=== PATIENT | male | born 1990 | race Caucasian/White ===

== ENCOUNTER 2017-10-16 21:09 | Emergency (ER) | payer OTHER ==
[2017-10-16] MEDS ORDERED: ONDANSETRON DISINTEGRATING 4 MG TAB PO ONE (21:50)
[2017-10-16] MEDS ORDERED: chlordiazePOXIDE 25 MG CAP PO ONE (21:50)
--- NOTE | 2017-10-16 22:07 | EDPHY ---
H & P Stated Complaint: n/v, dehydrated, "alc withdrawal" Time Seen by Provider: 10/16/17 21:47 HPI/ROS: CHIEF COMPLAINT: Nausea, vomiting, mild alcohol withdrawal HISTORY OF PRESENT ILLNESS: The patient presents the ED with nausea, vomiting and mild alcohol withdrawal. The patient reportedly relapsed approximately 5 days ago. The patient has been sober for the past 3 days and has developed symptoms of nausea and vomiting. The patient denies any suicidal or homicidal ideation. He denies any medical complaints of fever, cough or congestion. REVIEW OF SYSTEMS: A comprehensive 10 point review of systems is otherwise negative aside from elements mentioned in the history of present illness. Source: Patient Exam Limitations: No limitations - Personal History Current Tetanus Diphtheria and Acellular Pertussis (TDAP): Yes Tetanus Vaccine Date: <10yrs - Medical/Surgical History Hx Asthma: No Hx Chronic Respiratory Disease: No Hx Diabetes: No Hx Cardiac Disease: No Hx Renal Disease: No Hx Cirrhosis: No Hx Alcoholism: Yes Hx HIV/AIDS: No Hx Splenectomy or Spleen Trauma: No Other PMH: etoh abuse; fatty liver - Social History Smoking Status: Current some day smoker - Physical Exam Exam: General Appearance: Alert, no distress Eyes: Pupils equal and round no pallor or injection ENT, Mouth: Mucous membranes moist Respiratory: There are no retractions, lungs are clear to auscultation Cardiovascular: Regular rate and rhythm Gastrointestinal: Abdomen is soft and nontender, no masses, bowel sounds normal Neurological: A&O, normal motor function, normal sensory exam, normal cranial nerves Skin: Warm and dry, no rashes Musculoskeletal: Neck is supple nontender Extremities: symmetrical, full range of motion Constitutional: Initial Vital Signs Temperature (C) 37.0 C 10/16/17 21:21 Heart Rate 68 10/16/17 21:21 Respiratory Rate 20 10/16/17 21:21 Blood Pressure 125/76 H 10/16/17 21:21 O2 Sat (%) 97 10/16/17 21:21 O2 Delivery Mode Room Air Allergies/Adverse Reactions: cefaclor [From Ceclor] Allergy (Verified 10/16/17 21:23) Home Medications: Medication Instructions Recorded Omeprazole [Prilosec] 40 mg PO DAILY #30 capsule. 10/22/15 Ondansetron Odt [Zofran Odt 4 mg 4 mg PO Q4 PRN #20 tab 11/25/15 (RX)] Zofran 11/25/15 traZODone 10/16/17 Medical Decision Making ED Course/Re-evaluation: The patient was given a Zofran ODT for vomiting. The patient has only mild symptoms of alcohol withdrawal. The patient was given oral Librium. The patient will be discharged from the emergency department with a Zofran prepack and Librium prepack. The patient is advised to follow up with [facility] for any ongoing symptoms of alcohol withdrawal. The patient should return to the ED for markedly worsening symptoms, vomiting, pain or other concerns. Differential Diagnosis: Differential diagnosis considered includes alcohol withdrawal, alcohol withdrawal seizure, dehydration, delirium tremens - Data Points Medications Given: Discontinued Medications Chlordiazepoxide HCl (Librium) 25 mg PO EDNOW ONE Stop: 10/16/17 21:51 Last Admin: 10/16/17 21:52 Dose: 25 mg Ondansetron HCl (Zofran Odt) 4 mg PO EDNOW ONE Stop: 10/16/17 21:51 Last Admin: 10/16/17 21:53 Dose: 4 mg Departure - Departure Disposition: Home, Routine, Self-Care Clinical Impression: Alcohol withdrawal Condition: Good Instructions: Alcohol Withdrawal (ED) Additional Instructions: 1. Please go to the [facility] if you continue to have issues with alcohol dependence and mild alcohol withdrawal. 2. Zofran as needed for nausea and vomiting. 3. Librium 1 tablet every 6 hr as needed for symptoms of alcohol withdrawal. Referrals: FIOR GILLESPIE [Primary Care Provider] - As per Instructions [facility] [Outside] - As per Instructions
[2017-10-16] MEDS ORDERED: ONDANSETRON 4MG PREPACK#2 BTL TAKEHOME ONE (22:11)
[2017-10-16] MEDS ORDERED: CHLORDIAZEPOXIDE 25MG PREPK#6 BTL TAKEHOME ONE (22:11)
[2017-10-16 22:39] VITALS: BP 130/66; PULSE 66; RESP 16; TEMP 98.6; O2SAT 96
== END 2017-10-16 22:39 | disposition home or self-care (01) ==
DX: F10.239 Alcohol dependence with withdrawal, unspecified (principal); F17.200 Nicotine dependence, unspecified, uncomplicated